=== PATIENT | female | born 1995 | race Caucasian/White ===

== ENCOUNTER 2016-12-01 14:24 | Emergency (ER) | payer BC, MEDICAID ==
[2016-12-01 14:43] VITALS: BP 111/64
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
== END 2016-12-01 15:22 | disposition home or self-care (01) ==
LOC: UCCORT 14:24
DX: N39.0 Urinary tract infection, site not specified (principal); F17.210 Nicotine dependence, cigarettes, uncomplicated
CPT/HCPCS: 81003; 87077; 87086; 87186; 99212; G0463

== ENCOUNTER 2017-01-21 10:57 | Emergency (ER) | payer BC, MEDICAID ==
[2017-01-21 11:47] VITALS: BP 101/55
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
== END 2017-01-21 11:57 | disposition home or self-care (01) ==
LOC: UCCORT 10:57
DX: N39.0 Urinary tract infection, site not specified (principal); B96.89 Other specified bacterial agents as the cause of diseases classified elsewhere; Z32.02 Encounter for pregnancy test, result negative; Z88.1 Allergy status to other antibiotic agents; F17.210 Nicotine dependence, cigarettes, uncomplicated
CPT/HCPCS: 81003; 84702; 87077; 87086; 87186; 99212; G0463

== ENCOUNTER 2017-11-03 17:35 | Emergency (ER) | payer BC, MEDICAID ==
[2017-11-03 18:49] VITALS: BP 127/86
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
== END 2017-11-03 19:22 | disposition home or self-care (01) ==
LOC: UCCORT 17:35
DX: N39.0 Urinary tract infection, site not specified (principal); J02.9 Acute pharyngitis, unspecified; F17.210 Nicotine dependence, cigarettes, uncomplicated
CPT/HCPCS: 81003; 87077; 87086; 87186; 87651; 99212; G0463

== ENCOUNTER 2018-03-05 08:52 | Emergency (ER) | payer BC ==
[2018-03-05 09:04] VITALS: BP 119/66
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
--- NOTE | 2018-03-05 09:50 | RAD ---
Indication: RIGHT fifth toe pain following stubbing injury. Lateral foot pain. Comparison: No relevant prior exams available on the [facility] [place] [facility] PACS for comparison. Technique: AP, lateral, and oblique views RIGHT foot. REPORT AND IMPRESSION: #. Normal articular alignment. #. 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 #. Negative for fracture. #. Mild soft tissue swelling at the lateral forefoot and fifth toe.
== END 2018-03-05 10:06 | disposition home or self-care (01) ==
LOC: UCCORT 08:52
DX: S93.504A Unspecified sprain of right lesser toe(s), initial encounter (principal); W22.09XA Striking against other stationary object, initial encounter; Y93.89 Activity, other specified; Y92.9 Unspecified place or not applicable; E10.9 Type 1 diabetes mellitus without complications; Z88.0 Allergy status to penicillin; F17.210 Nicotine dependence, cigarettes, uncomplicated
CPT/HCPCS: 99212; G0463

== ENCOUNTER 2019-04-14 12:42 | Emergency (ER) | payer BC ==
--- OUTSIDE RECORDS SUMMARY | 2019-04-14 13:58 | XMS REPORT | Continuity of Care Document ---
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 [employer] [phone] Practitioner Problems Active Problems Provider Date Type 1 diabetes mellitus uncontrolled Magdaleno Lane FNP Onset: [address] FNP Onset: 04/12/2015 Vitamin D deficiency Magdaleno Lane FNP Onset: 04/12/2015 Other abnormal and inconclusive findings Hiro Vasquez MD,FACS Onset: 10/06 on diagnostic imaging of breast Steatosis of liver Magdaleno Lane FNP Onset: 05/15/2018 Note: Document: 05/15/18 - CT Abdo Pelv W/ IV Contrast Substance abuse Magdaleno Laen FNP Onset: 08/23/2018 Note: + cocaine in ED 08/23/18 Lab: 08/23/18 - [facility] RFX Micro & Culture II Social History Type Date Description Comments Sex Unknown Tobacco Use Start: Unknown currently smokes 1/2 Pack Daily ETOH Use Rarely consumes alcohol ETOH Use Currently consumes alcohol socially Recreational Drug Use Denies Drug Use Tobacco Use Start: 06/02/13 Light tobacco smoker (10 14- 1/2 pack a day or fewer cigarettes/day) Smoking Status Reviewed: 03/15/19 Light tobacco smoker (10 1/4- 1/2 pack a day or fewer cigarettes/day) Allergies, Adverse Reactions, Alerts Active Allergies Reaction Severity Comments Date Penicillin Hives 02/14/2011 Amoxicillin 10/06/2017 Inactive Allergies NKDA 10/13/2008 Medications Active Medications SIG Qnty Indications Ordering Date Provider Effexor XR 2 by mouth every 60caps F32.89 [place], 02/22/2019 75mg Caps ER day a day (for 150 Jenniferleigh, 24HR mg total) 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 Valacyclovir HCL take one tablet by 30tabs [facility], 12/23/2011 500mg mouth every day Jenniferleigh, Tablets 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 Humalog Pump Unknown 100Unit/ML Solution Glucagon Emergency Campbell, 1mg MD Berenice Kit Ibuprofen 1 tablet by mouth 90tabs Campbell, 600mg Tablets q 6 hrs prn MD Berenice Mirena (52 MG) Inserted 10/22/17 [facility] 20[facility]g/24HR [facility] Lantus Solostar inject 40 units Unknown under the skin 100Unit/ML Solution once daily Pen-Inject Lisinopril 1 by mouth every Unknown 5mg Tablets day History Medications Macrobid 1 cap by mouth 10caps Mervin Hendrix MD 02/02/2019 - 100mg Capsules twice a day 02/07/2019 Fluconazole one tab once 1tabs N76.0 Mervin Hendrix MD 01/28/2019 - 150mg 03/15/2019 Tablets Immunizations CPT Code Status Date Vaccine Lot # [id number] Given 03/15/2019 Influenza Virus Vaccine, Quadrivalent, 36 Mos+, [id number] .[id number] 50001 Given 04/14/2018 Influenza Virus Vaccine, Quadrivalent, 36 Mos+, [id number] .5ML Q2038 Given 02/13/2016 Influenza Vaccine (Fluzone) Age 3 And Older [id number] 81884 Given 11/06/2015 Meningococcal Conjugate Vaccine Serogroups For [id number] Intramuscular Use Q2038 Given 03/08/2015 Influenza Vaccine (Fluzone) Age 3 And Older 69090 Given 03/09/2013 flu vaccination 50442 Given 04/21/2012 flu vaccination 76430 Given 05/10/2010 flu vaccination 24943 Given 04/12/2009 Gardasil 98505 Given 04/12/2009 H1N1 Immuniation Adminstration 05688 Given 02/16/2008 Gardasil 43774 Given 01/28/2007 Tdap injection 50002 Given 01/26/2007 Meningococcal Conjugate Vaccine Serogroups For Intramuscular Use 30777 Given 01/26/2007 Gardasil 71681 Given 11/04/2000 DTaP Vaccine Younger Than 7 32245 Given 11/04/2000 MMR Vaccine, Live, For Subcutaneous Use 18401 Given 11/04/2000 Poliovirus Vaccine Oral 84109 Given 02/08/1999 DTaP Vaccine Younger Than 7 18352 Given 06/17/1997 Hepatitis B Vaccine Pediatric/Adolescent 14565 Given 06/17/1997 Poliovirus Vaccine Oral 79374 Given 06/17/1997 MMR Vaccine, Live, For Subcutaneous Use 02600 Given 06/17/1997 DTaP Vaccine Younger Than 7 37640 Given 06/17/1997 Hib PRP-T Conjugate 4 Dose Schedule 58925 Given 03/29/1996 Varicella (Chicken Pox) Vaccine 52549 Given 03/03/1996 Poliovirus Vaccine Oral 96778 Given 03/03/1996 DTaP Vaccine Younger Than 7 95216 Given 03/03/1996 Hib PRP-T Conjugate 4 Dose Schedule 25301 Given 01/19/1996 Poliovirus Vaccine Oral 53866 Given 01/01/1996 Hepatitis B Vaccine Pediatric/Adolescent 09596 Given 01/01/1996 DTaP Vaccine Younger Than 7 07496 Given 01/01/1996 Hib PRP-T Conjugate 4 Dose Schedule 38275 Given 1995 Hepatitis B Vaccine Pediatric/Adolescent Vital Signs Date Vital Result Comment 03/15/2019 3:06pm BP Systolic 133 mmHg BP Diastolic 74 mmHg Body Temperature 98.4 F Heart Rate 106 /min Respiratory Rate 18 /min Height 63 inches 5'3" Weight 177.50 lb BMI (Body Mass Index) 31.4 kg/m2 BSA (Body Surface Area) 1.84 m2 [place] body weight in kilograms 52 kg O2 % BldC Oximetry 99 % Ra 01/28/2019 4:26pm BP Systolic 152 mmHg BP Diastolic 99 mmHg Body Temperature 98.7 F Heart Rate 120 /min Respiratory Rate 18 /min Height 62.75 inches 5'2.75" Weight 174.38 lb BMI (Body Mass Index) 31.1 kg/m2 BSA (Body Surface Area) 1.82 m2 [place] body weight in kilograms 52 kg O2 % BldC Oximetry 98 % Ra Results Test Date Facility Test Result H/L Range Note Urine Dipstick 03/15/2019 [facility] Inhouse Ua Color yellow Yellow Ua Clarity clear Clear Ua Leuko negative Negative Ua Nitrite negative Negative Ua Urobilinogen 3.5 High 0.2 - 1.0 E.U./dL Ua Protein 0.15 High Negative Ua PH 6.0 Low 6.5-7.5 Ua Blood 10 High Negative Ua [place] 1.015 1.010-1.030 Ua Ketones negative Negative Ua Bilirubin negative Negative Ua Glucose 3+ High Negative Laboratory test 03/05/2019 [facility] Glucose Poc 157 mg/dL High 70- 140 finding Hemoglobin A1c 03/05/2019 [facility] Hgb A1c MFr Bld >14.0 % High 4.0- 6.0 Est. average glucose Bld gHb Est-mCnc Unable to calcul <SEE NOTE> mg/dL < 126 1 Urine Dipstick 01/28/2019 [facility] Inhouse Ua Color yellow Yellow Ua Clarity clear Clear Ua Leuko - Negative Ua Nitrite + Negative Ua Urobilinogen 3.5 High 0.2 - 1.0 E.U./dL Ua Protein - Negative Ua PH 6.0 Low 6.5-7.5 Ua Blood 80 High Negative Ua [place] 1.015 1.010-1.030 Ua Ketones - Negative Ua Bilirubin - Negative Ua Glucose 60 High Negative Laboratory test 01/28/2019 [facility] Inhouse Urine Negative finding Test Chlam/GC/Trichomon 01/28/2019 [facility] Ur Trichomonas NEGATIVE Negative 2 as PCR, Ur [address] vaginalis,PCR [place], [place] [id number] [phone] Ur Chlamydia trachomatis,PCR NEGATIVE Negative Ur Neisseria gonorrhoeae,PCR NEGATIVE Negative 3 Urine 01/28/[address] [facility] [address] Urine Culture ESCHERICHIA Abnormal 4 Culture [address] [facility] [place], [place] [id number] [phone] [id number] 01/28/[address] [facility] [address] Nitrofurantoin <=16 Susceptible [address] [place] [address] [phone] Trimethoprim/Sulfamethoxazole <=20 Susceptible Ampicillin <=2 Susceptible Cefazolin <=4 Susceptible Ampicillin/Sulbactam <=2 Susceptible Ciprofloxacin >=4 Resistant Piperacillin/Tazobactam <=4 Susceptible Ceftazidime <=1 Susceptible Ceftriaxone <=1 Susceptible Cefepime <=1 Susceptible Levofloxacin >=8 Resistant Imipenem <=0.25 Susceptible Gentamicin <=1 Susceptible Tobramycin <=1 Susceptible CBC 01/10/2019 [facility] White Blood Count 7.1 K/uL Normal 3.1-10.7 5 [address] [place] [address] [phone] Red Blood Count 4.31 M/uL Normal 3.90-5.40 Hemoglobin 13.0 gm/dL Normal 11.6-15.8 Hematocrit 37.2 % Normal 36.0-46.1 Mean Cell Volume 86.3 fl Normal 80.9-99.0 Mean Corpuscular HGB 30.2 pg Normal 25.9-32.7 Mean Corpuscular HGB Conc 34.9 g/dL High 30.8-34.3 Platelet Count 271 K/uL Normal 155-360 Red Cell Distri Width SD 37.6 fl Normal 36-47 Red Cell Distri Width %CV 11.9 % Normal 11.7-14.4 Mean Platelet Volume 10.0 fl Normal 8.9-12.4 NRBC % 0.0 /100WBC < 10/ 100 WBC Comprehensive Metabolic 01/10/2019 [facility] Glucose 253 mg/dL High 74-106 Panel [address] [place], [place] [id number] [phone] BUN 9 mg/dL Normal 7-18 Creatinine 0.6 mg/dL Normal 0.6-1.3 Glom Filtration Rate, Estimate >60 mL/min >60 If >60 mL/min >60 6 BUN/Creat 15.0 ratio Sodium 139 mmol/L Normal 136-145 Potassium 3.1 mmol/L Low 3.5-5.1 Chloride 107 mmol/L Normal 98-107 Carbon Dioxide 22 mmol/L Normal 21-32 Anion Gap 10 mEq/L Normal 8-16 Calcium 7.2 mg/dL Low 8.5-10.1 Total Protein 6.2 g/dL Low 6.4-8.2 Albumin 3.0 g/dL Low 3.4-5.0 Globulin 3.2 g/dL Normal 1.9-4.3 Alb/Glob 0.9 ratio Bilirubin,Total 0.3 mg/dL Normal 0.2-1.0 Sgot/Ast 8 U/L Low 15-37 7 SGPT/Alt 17 U/L Normal 12-78 Alkaline Phosphatase 93 U/L Normal 45-117 Laboratory test finding 01/10/2019 [facility] Ethyl Alcohol 53.0 mg/dL [address] [address] [phone] Poc Urinalysis 11/25/2018 [facility] Color Ur Yellow Clarity Ur Clear Glucose Ur Strip-mCnc 500 mg/dL Abnormal Negative Bilirub Ur Ql Strip Negative Negative Ketones Ur Strip-mCnc Trace mg/dL Abnormal Negative Sp Gr Ur Strip <=1.005 1.005-1.025 Hgb Ur Ql Strip Trace,intact Abnormal Negative pH Ur Strip 5.5 5.0-8.0 Prot Ur Strip-mCnc Negative mg/dL Negative Urobilinogen Ur Strip-aCnc 0.2 {Ehrlich_U}/dL 0.2-1.0 Nitrite Ur Ql Strip Positive Abnormal Negative Leukocyte esterase Ur Ql Strip Negative Negative Laboratory test 11/25/2018 [facility] Glucose Poc 544 mg/dL High 70- 140 finding Hemoglobin A1c 11/25/2018 [facility] Hgb A1c MFr Bld 13.8 % High 4.0- 6.0 Est. average glucose Bld gHb Est-mCnc 349 mg/dL High <126 1 Unable to calculate 2 Z11.4 3 A negative result for either C. trachomatis and/or N. gonorrhoeae does not preclued an infection because results are dependent on adequate specimen collection, absence of inhibitors, and sufficient DNA to be detected. 4 ESCHERICHIA [place] 5 DIABETIC/INTOXICATION 6 Note: Persistent reduction for 3 months or more in an eGFR <60 mL/min/1.73 m2 defines CKD. Patients with eGFR values >/=60 mL/min/1.73 m2 may also have CKD if evidence of persistent proteinuria is present. The original MDRD equation for estimated GFR is not valid for patients less than 18 years of age. Additional information may be found at www.kdoqi.org. 7 Values below the stated reference ranges of AST and ALT can be seen in normal populations. Clinical correlation is suggested. Procedures Date Code Description Status 03/15/2019 80298 Brief Emotional/Behav Assessment W/ Scoring Doc Per Completed Standard Inst 09/24/2017 [id number] Mammogram Completed Medical Devices Description No Information Available Encounters Type Date Location Provider Dx Diagnosis Office Visit 03/15/2019 [facility], F32.89 Other specified 3:[address] ananda Dolan episodes N39.0 Urinary tract infection, site not specified Office Visit 01/28/2019 4:30p Family Medicine Mervin Hendrix, R31.9 Hematuria, Pro SEGAL MD unspecified N76.0 Acute vaginitis Z11.4 Encounter for screening for human immunodeficiency virus A09 Infectious gastroenteritis and colitis, unspecified Z32.02 Encounter for test, result negative Assessments Date Code Description Provider 03/15/2019 F32.89 Other specified depressive episodes Magdaleno Lane FNP 03/15/2019 N39.0 Urinary tract infection, site not Magdaleno Lane FNP specified 01/28/2019 R31.9 Hematuria, unspecified Mervin Hendrix MD 01/28/2019 N76.0 Acute vaginitis Mervin Hendrix MD 01/28/2019 Z11.4 Encounter for screening for human Mervin Hendrix MD immunodeficiency virus [HIV] 01/28/2019 A09 Infectious gastroenteritis and colitis, Mervin Hendrix MD unspecified 01/28/2019 Z32.02 Encounter for test, result Mervin Hendrix MD negative Plan of Treatment 03/15/2019 - Magdaleno Lane FNPF32.89 Other specified depressive episodesComments:Condition stable - continue Effexor as prescribed.Follow up:6 lokdscC87.0 Urinary tract infection, site not specifiedComments:Urine dip negative for nitrites and leukocytes. +3 glucose. Patient admits DM poorly controlled. Education provided re: relationship between poorly controlled vaginitis, UTIs, and DM. Functional Status Description No Information Available Mental Status Description No Information Available Referrals Description No Information Available
[2019-04-14 14:07] VITALS: BP 118/75
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
== END 2019-04-14 14:34 | disposition home or self-care (01) ==
LOC: UCCORT 12:42
DX: S96.912A Strain of unspecified muscle and tendon at ankle and foot level, left foot, initial encounter (principal); F17.210 Nicotine dependence, cigarettes, uncomplicated; Z88.0 Allergy status to penicillin; X58.XXXA Exposure to other specified factors, initial encounter; Y92.9 Unspecified place or not applicable
CPT/HCPCS: 84702; 99211; G0463

== ENCOUNTER 2019-05-28 13:32 | Emergency (ER) | payer BC, MEDICAID ==
[2019-05-28 14:59] VITALS: BP 141/86
[2019-05-28] MEDS ORDERED: Fluorescein Sodium TOPICAL* 1 MG TEST STRIP OPHTHALMIC ONE (15:01)
[2019-05-28] MEDS ORDERED: Tetracaine 0.5% OPTH.SOL 4 ML* 1 DROP BTL RIGHT EYE ONE (15:01)
[2019-05-28] MEDS ORDERED: Erythromycin OPTH OINT* APPLIC OINT RIGHT EYE ONE (15:27)
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
== END 2019-05-28 15:47 | disposition home or self-care (01) ==
LOC: UCCORT 13:32
DX: S05.91XA Unspecified injury of right eye and orbit, initial encounter (principal); I10 Essential (primary) hypertension; E11.9 Type 2 diabetes mellitus without complications; F17.210 Nicotine dependence, cigarettes, uncomplicated; Z79.899 Other long term (current) drug therapy; Z88.0 Allergy status to penicillin; W22.8XXA Striking against or struck by other objects, initial encounter; Y92.9 Unspecified place or not applicable
CPT/HCPCS: 99213; A9270-GY; G0463

== ENCOUNTER 2019-08-21 10:38 | Emergency (ER) | payer BC, MEDICAID ==
--- OUTSIDE RECORDS SUMMARY | 2019-08-21 11:33 | XMS REPORT | Continuity of Care Document ---
:1995 External Reference #:[id number] Author Name Magdaleno Lane FNP Address [address] [place] [address] Care Team Providers Name Role Phone Magdaleno Lane PRINCIPAL PROCESS ENGINEER - Nurse Care Team Information Drug Abuse Counselor Practitioner Problems Active Problems Provider Date Type 1 diabetes mellitus uncontrolled Magdaleno Lane FNP Onset: [address] FNP Onset: 04/12/[address] D deficiency Magdaleno Lane FNP Onset: 04/12/2015 Other abnormal and inconclusive findings Hiro Vasquez MD,FACS Onset: 10/06 on diagnostic imaging of breast Steatosis of liver Madgaleno Lane FNP Onset: 05/15/2018 Note: Document: 05/15/18 - CT Abdo Pelv W/ IV Contrast Substance abuse Magdaleno Lane FNP Onset: 08/23/2018 Note: + cocaine in [...] day or fewer cigarettes/day) Smoking Status Reviewed: 07/21/19 Light tobacco smoker (10 1/4- 1/2 pack a day or fewer cigarettes/day) Allergies, Adverse Reactions, Alerts Active Allergies Reaction Severity Comments Date Penicillin Hives 02/14/2011 Amoxicillin 10/06/2017 Inactive Allergies NKDA 10/13/2008 Medications Active Medications SIG Qnty Indications Ordering Date Provider Buspirone HCL take one tablet by 90tabs F41.1 Chrisgirish, 07/21/2019 7.5mg mouth 2-3 times a Jenniferleigh, Tablets day for anxiety ASSISTANT BRANCH MANAGER Effexor XR 2 by mouth every 60caps F32.89 [facility], 02/22/2019 75mg Caps ER day a day (for 150 Jensrifercasandragigi, 24HR mg total) ASSISTANT BRANCH MANAGER Valacyclovir HCL take one tablet by 30tabs Domingo, 12/23/2011 500mg mouth every day Jenniferleigh, Tablets ASSISTANT BRANCH MANAGER Humalog Pump Unknown 100Unit/ML Solution Glucagon Emergency Juárez, 1mg MD Berenice Kit Ibuprofen 1 tablet by mouth 90tabs Marquita, 600mg Tablets q 6 hrs prn MD Berenice Mirena (52 MG) Inserted 10/22/17 [facility]g/24HR [facility] Lantus Solostar inject 40 units Unknown under the skin 100Unit/ML Solution once daily Pen-Inject Lisinopril 1 by mouth every Unknown 5mg Tablets day History Medications Oseltamivir 1 by mouth 10caps J11.[address], 07/21/2019 - Phosphate twice a day ASSISTANT BRANCH MANAGER 07/26/2019 75mg Capsules Macrobid 1 cap by 10caps Mervin Hendrix MD 02/02/2019 - 100mg mouth twice a 02/07/2019 Capsules day Fluconazole one tab once 1tabs N76.0 Mervin Hendrix MD 01/28/2019 - 150mg 03/15/2019 Tablets Immunizations CPT Code Status Date Vaccine Lot # [id number] Given 03/15/2019 Influenza Virus Vaccine, Quadrivalent, 36 Mos+, [id number] .[id number] 67946 Given 04/14/2018 Influenza Virus Vaccine, Quadrivalent, 36 Mos+, [id number] .5ML Q2038 Given 02/13/2016 Influenza Vaccine (Fluzone) Age 3 And Older [id number] 26597 Given 11/06/2015 Meningococcal Conjugate Vaccine Serogroups For [id number] Intramuscular Use Q2038 Given 03/08/2015 Influenza Vaccine (Fluzone) Age 3 And Older 83309 Given 03/09/2013 flu vaccination 57946 Given 04/21/2012 flu vaccination 58744 Given 05/10/2010 flu vaccination 87331 Given 04/12/2009 Gardasil 53397 Given 04/12/2009 H1N1 Immuniation Adminstration 10207 Given 02/16/2008 Gardasil 19446 Given 01/28/2007 Tdap injection 98580 Given 01/26/2007 Meningococcal Conjugate Vaccine Serogroups For Intramuscular Use 31794 Given 01/26/2007 Gardasil 14980 Given 11/04/2000 DTaP Vaccine Younger Than 7 43482 Given 11/04/2000 MMR Vaccine, Live, For Subcutaneous Use 45893 Given 11/04/2000 Poliovirus Vaccine Oral 11032 Given 02/08/1999 DTaP Vaccine Younger Than 7 03758 Given 06/17/1997 Hepatitis B Vaccine Pediatric/Adolescent 19707 Given 06/17/1997 Poliovirus Vaccine Oral 50364 Given 06/17/1997 MMR Vaccine, Live, For Subcutaneous Use 60368 Given 06/17/1997 DTaP Vaccine Younger Than 7 32350 Given 06/17/1997 Hib PRP-T Conjugate 4 Dose Schedule 95153 Given 03/29/1996 Varicella (Chicken Pox) Vaccine 39259 Given 03/03/1996 Poliovirus Vaccine Oral 21517 Given 03/03/1996 DTaP Vaccine Younger Than 7 30008 Given 03/03/1996 Hib PRP-T Conjugate 4 Dose Schedule 91380 Given 01/19/1996 Poliovirus Vaccine Oral 92543 Given 01/01/1996 Hepatitis B Vaccine Pediatric/Adolescent 11124 Given 01/01/1996 DTaP Vaccine Younger Than 7 98189 Given 01/01/1996 Hib PRP-T Conjugate 4 Dose Schedule 44849 Given 1995 Hepatitis B Vaccine Pediatric/Adolescent Vital Signs Date Vital Result Comment 07/21/2019 10:52am BP Systolic 118 mmHg BP Diastolic 72 mmHg Body Temperature 98.4 F Heart Rate 105 /min Height 63 inches 5'3" Weight 184.12 lb BMI (Body Mass Index) 32.6 kg/m2 BSA (Body Surface Area) 1.87 m2 [place] body weight in kilograms 52 kg O2 % BldC Oximetry 98 % 03/15/2019 3:06pm BP Systolic 133 mmHg BP Diastolic 74 mmHg Body Temperature 98.4 F Heart Rate 106 /min Respiratory Rate 18 /min Height 63 inches 5'3" Weight 177.50 lb BMI (Body Mass Index) 31.4 kg/m2 BSA (Body Surface Area) 1.84 m2 [place] body weight in kilograms 52 kg O2 % BldC Oximetry 99 % Ra Results Test Acquired Date Facility Test Result H/L Range Note Laboratory test 07/21/2019 [facility] Influenza A+B pos B finding Antigen Rapid Laboratory test 06/15/2019 [facility] Glucose Poc 196 mg/dL High 70- 140 finding Hemoglobin A1c 06/15/2019 [facility] Hgb A1c MFr 10.6 % High 4.0-6.0 Bld Est. average glucose Bld gHb Est-mCnc 258 mg/dL High <126 Laboratory test 06/15/2019 [facility] Hemoglobin A1c <pending> finding CBC W/Automated 04/28/2019 [facility] White Blood Count 13.7 K/uL High 3.1-10. [address] [place], [place] [id number] [phone] Red Blood Count 5.00 M/uL Normal 3.90-5.40 Hemoglobin 15.5 gm/dL Normal 11.6-15.8 Hematocrit 44.2 % Normal 36.0-46.1 Mean Cell Volume 88.4 fl Normal 80.9-99.0 Mean Corpuscular HGB 31.0 pg Normal 25.9-32.7 Mean Corpuscular HGB Conc 35.1 g/dL High 30.8-34.3 Platelet Count 398 K/uL High 155-360 Red Cell Distri Width SD 39.0 fl Normal 36-47 Red Cell Distri Width %CV 12.1 % Normal 11.7-14.4 Mean Platelet Volume 10.8 fl Normal 8.9-12.4 Neut% 57.5 % Normal 40.4-72.8 Lymph % 36.0 % Normal 20.0-42.0 Ida % 5.0 % Normal 4.3-13.2 Eo% 0.7 % Normal 0.0-6.6 Bas% 0.1 % Normal 0.0-1.1 Immature Grans 0.7 % Normal 0.0-5.0 NRBC % 0.0 /100WBC < 10/ 100 WBC Neut# 7.90 K/uL High 1.8-7.0 Lymph # 4.94 K/uL High 1.0-4.0 Ida # 0.68 K/uL Normal 0.3-0.9 Eos # 0.09 K/uL Normal 0.0-0.5 Baso # 0.02 K/uL Normal 0.0-0.1 Immature Grans Absolute 0.09 K/uL NRBC # 0.00 K/uL Laboratory test 04/28/2019 [facility] Ethyl Alcohol 116.0 mg/dL finding [address] [place], [place] [address] [phone] Comprehensive 04/28/2019 [facility] Glucose 333 mg/dL High 74-10 Metabolic Panel [address] [place] [address] [phone] BUN 6 mg/dL Low 7-18 Creatinine 0.8 mg/dL Normal 0.6-1.3 Glom Filtration Rate, Estimate >60 mL/min >60 If >60 mL/min >60 2 BUN/Creat 7.5 ratio Sodium 137 mmol/L Normal 136-145 Potassium 3.2 mmol/L Low 3.5-5.1 Chloride 102 mmol/L Normal 98-107 Carbon Dioxide 24 mmol/L Normal 21-32 Anion Gap 11 mEq/L Normal 8-16 Calcium 9.0 mg/dL Normal 8.5-10.1 Total Protein 8.4 g/dL High 6.4-8.2 Albumin 4.1 g/dL Normal 3.4-5.0 Globulin 4.3 g/dL Normal 1.9-4.3 Alb/Glob 1.0 ratio Bilirubin,Total 0.5 mg/dL Normal 0.2-1.0 Sgot/Ast 18 U/L Normal 15-37 SGPT/Alt 27 U/L Normal 12-78 Alkaline Phosphatase 103 U/L Normal 45-117 Laboratory test finding 04/28/2019 [facility] Lipase 39 U/L Low 56-289 [address] [place] [address] [phone] HCG,Serum (Qualitative) NEGATIVE (Negative) 3 Laboratory test 04/14/2019 [facility] Laboratory Poc , Negative Negative 4 finding [phone] Urine Urine Dipstick 03/15/2019 [facility] Ua Color yellow Yellow Ua Clarity clear Clear Ua Leuko negative Negative Ua Nitrite negative Negative Ua Urobilinogen 3.5 High 0.2 - 1.0 E.U./dL Ua Protein 0.15 High Negative Ua PH 6.0 Low 6.5-7.5 Ua Blood 10 High Negative Ua Specific [place] 1.015 1.010-1.030 Ua Ketones negative Negative Ua Bilirubin negative Negative Ua Glucose 3+ High Negative Laboratory test 03/05/2019 [facility] Glucose Poc 157 mg/dL High 70- 140 finding Hemoglobin A1c 03/05/2019 [facility] Hgb A1c MFr Bld >14.0 % High 4.0- 6.0 Est. average glucose Bld gHb Est-mCnc Unable to calcul <SEE NOTE> mg/dL < 126 5 Urine Dipstick 01/28/2019 [facility] Inhouse Ua Color yellow Yellow Ua Clarity clear Clear Ua Leuko - Negative Ua Nitrite + Negative Ua Urobilinogen 3.5 High 0.2 - 1.0 E.U./dL Ua Protein - Negative Ua PH 6.0 Low 6.5-7.5 Ua Blood 80 High Negative Ua Specific [place] 1.015 1.010-1.030 Ua Ketones - Negative Ua Bilirubin - Negative Ua Glucose 60 High Negative Laboratory test 01/28/2019 [facility] Inhouse Urine Negative finding Test Chlam/GC/Trichomon 01/28/2019 [facility] Ur Trichomonas NEGATIVE Negative 6 as PCR, Ur [address] vaginalis,PCR [place], [place] [id number] [phone] Ur Chlamydia trachomatis,PCR NEGATIVE Negative Ur Neisseria gonorrhoeae,PCR NEGATIVE Negative 7 Urine 01/28/[address] [facility] [address] Urine Culture ESCHERICHIA Abnormal 8 Culture [address] [facility] [address] [place], [place] [id number] [phone] Ast-[id number] 01/28/[address] Nitrofurantoin <=16 Susceptible [address] [place] [address] [phone] Trimethoprim/Sulfamethoxazole <=20 Susceptible Ampicillin <=2 Susceptible Cefazolin <=4 Susceptible Ampicillin/Sulbactam <=2 Susceptible Ciprofloxacin >=4 Resistant Piperacillin/Tazobactam <=4 Susceptible Ceftazidime <=1 Susceptible Ceftriaxone <=1 Susceptible Cefepime <=1 Susceptible Levofloxacin >=8 Resistant Imipenem <=0.25 Susceptible Gentamicin <=1 Susceptible Tobramycin <=1 Susceptible 1 ALCOHOL INTOX 2 Note: Persistent reduction for 3 months or more in an eGFR <60 mL/min/1.73 m2 defines CKD. Patients with eGFR values >/=60 mL/min/1.73 m2 may also have CKD if evidence of persistent proteinuria is present. The original MDRD equation for estimated GFR is not valid for patients less than 18 years of age. Additional information may be found at www.kdoqi.org. 3 Method: Quidel QuickVue One-Step Immunoassay 4 News Librarian: [id number] Test Disclaimer: Positive bacteria, red blood cells, white blood cells, early , low specific gravity, and other factors may cause false positive or negative results. It is recommended to retest unexpected and borderline results with a serum test when applicable. If is still suspected, please repeat test after 48 to 72 hours. 5 Unable to calculate 6 Z11.4 7 A negative result for either C. trachomatis and/or N. gonorrhoeae does not preclued an infection because results are dependent on adequate specimen collection, absence of inhibitors, and sufficient DNA to be detected. 8 ESCHERICHIA COLI Procedures Date Code Description Status 03/15/2019 59034 Brief Emotional/Behav Assessment W/ Scoring Doc Per Completed Standard Inst 09/24/2017 [id number] Mammogram Completed Medical Devices Description No Information Available Encounters Type Date Location Provider Dx Diagnosis Office Visit 07/21/[address] J11.1 Flu due to 11:00a Pro Dolan, unidentified ASSISTANT BRANCH MANAGER influenza virus w oth resp manifest F41.1 Generalized anxiety disorder Office Visit 03/15/[address], F32.89 Other specified 3:00p Medicine IDEGO Baeza depressive RD episodes N39.0 Urinary tract infection, site not specified Z23 Encounter for immunization Office Visit 01/28/2019 4:30p [facility] Medicine Mervin Hendrix, R31.9 Hematuria, Pro SEGAL MD unspecified N76.0 Acute vaginitis Z11.4 Encounter for screening for human immunodeficiency virus A09 Infectious gastroenteritis and colitis, unspecified Z32.02 Encounter for test, result negative Assessments Date Code Description Provider 07/21/2019 J11.1 Influenza due to unidentified influenza Magdaleno Lane FNP virus with other respiratory manifestations 07/21/2019 F41.1 Generalized anxiety disorder Magdaleno LaneDIEGO 03/15/2019 F32.89 Other specified depressive episodes Magdaleno LaneDIEGO 03/15/2019 N39.0 Urinary tract infection, site not Magdaleno Lane ASSISTANT BRANCH MANAGER specified 03/15/2019 Z23 Encounter for immunization Carolina LanecasandragigiDIEGO 01/28/2019 R31.9 Hematuria, unspecified Mervin Hendrix MD 01/28/2019 N76.0 Acute vaginitis Mervin Hendrix MD 01/28/2019 Z11.4 Encounter for screening for human Mervin Hendrix MD immunodeficiency virus [HIV] 01/28/2019 A09 Infectious gastroenteritis and colitis, Mervin Hendrix MD unspecified 01/28/2019 Z32.02 Encounter for test, result Mervin Hendrix MD negative Plan of Treatment 07/21/2019 - Magdaleno [address] FNEleanorJ11.1 Influenza due to unidentified influenza virus with other respiratory manifestationsNew Medication:Oseltamivir Phosphate 75 mg - 1 by mouth twice a dayComments:Supportive treatments - warm salt water gargles, warm fluids, cool mist humidifier, fever and pain reducers ( Tylenol or Ibuprofen) as needed, Vics vapor rub and recommend saline nasal spray or irrigation for nasal congestion.F41.1 Generalized anxiety disorderNew Medication:Buspirone HCL 7.5 mg - take one tablet by mouth 2-3 times a day for anxietyComments:Discussed adding in Buspirone take 2-3 x a dayFollow up:10-14 days f/u anxiety Functional Status Description No Information Available Mental Status Description No Information Available Referrals Description No Information Available
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
[2019-08-21 12:59] VITALS: BP 128/82
== END 2019-08-21 12:59 | disposition home or self-care (01) ==
LOC: UCCORT 10:38
DX: R05 Cough (principal); J30.9 Allergic rhinitis, unspecified; Z88.0 Allergy status to penicillin; F17.210 Nicotine dependence, cigarettes, uncomplicated
CPT/HCPCS: 99212; G0463